=== PATIENT | female | born 1945 | race Caucasian/White ===

== ENCOUNTER 2017-06-08 03:48 | Emergency (ER) | payer MEDICARE, OTHER ==
[2017-06-08 04:09] LABS: BASOPHILS 0.4 % (0-2); EOSINOPHILS 2.2 % (0-7); HEMATOCRIT 39.7 % (36.0-48.0); HEMOGLOBIN 13.4 g/dL (12-16); IMMATURE GRANULOCYTES 0.2 % (0-5); LYMPHOCYTES 36.5 % (15-50); MCH 28.7 pg (26.0-34.0); MCHC 33.8 g/dL (31.0-37.0); MEAN PLATELET VOLUME 9.4 fL (7.4-10.4); MONOCYTES 8.1 % (2-11); NEUTROPHILS 52.6 % (40-80); PLATELET COUNT 191 10x3/uL (130-400); RBC 4.67 10x6/uL (4.00-5.40); RDW 13.2 % (11.5-14.5)
[2017-06-08 04:21] LABS: INR 1.06 (0.85-1.17); PROTIME 13.4 SECONDS (11.6-15.0)
[2017-06-08 04:22] LABS: APTT 32.6 SECONDS (22.8-39.4)
[2017-06-08 04:26] LABS: ALKALINE PHOSPHATASE 118 U/L (46-116); ALT (SGPT) 20 U/L (10-68); BILIRUBIN - TOTAL 0.43 mg/dL (0.2-1.3); CALC OSMOLALITY 282 mosm/kg (275-300); CALCIUM 9.2 mg/dL (8.5-10.1); CARBON DIOXIDE 28.6 mmol/L (21.0-32.0); CHLORIDE - SERUM 106 mmol/L (98-107); CREATININE - SERUM 0.9 mg/dL (0.6-1.3); GLUCOSE 110 mg/dL (74-106); PROTEIN - SERUM 7.2 g/dL (6.4-8.2); SODIUM 141 mmol/L (136-145); UREA NITROGEN 16 mg/dL (7-18); eGFR NON AFRICAN AMERICAN 65 mL/min (90-120)
[2017-06-08 04:37] LABS: CHOL - HDL RATIO 3.2 ratio (2.3-4.1); CHOLESTEROL, TOTAL 153 mg/dL (0-200); CKMB 0.7 U/L (0.0-3.6); CREATINE KINASE 35 UL (21-215); HDL CHOLESTEROL 48 mg/dL (32-96); LDL CHOLESTEROL 86 mg/dL (0-100); LDL-HDL RATIO 1.8 ratio (1.5-3.5); TRIGLYCERIDE 98 mg/dL (30-200)
[2017-06-08 04:41] LABS: TROPONIN-I < 0.017 ng/mL (0.000-0.060)
== END 2017-06-08 05:42 | disposition home or self-care (01) ==
LOC: D.ER 03:48
PROVIDERS: Emergency Medicine
DX: R07.9 Chest pain, unspecified (principal); I25.10 Atherosclerotic heart disease of native coronary artery without angina pectoris; R09.1 Pleurisy

== ENCOUNTER → 2017-06-10 14:39 | Outpatient (CLI) | payer MEDICARE, OTHER | END | disposition home or self-care (01) | LOC: D.CT 14:39 | DX: R06.02 Shortness of breath (principal) ==

== ENCOUNTER 2020-05-10 11:53 | Day surgery (SDC) | payer MEDICARE, OTHER ==
[~2020-05-10] VITALS: Ht 170.2 cm; Wt 78.0 kg
[2020-05-10 12:25] LABS: BASOPHILS 0.2 % (0-2); EOSINOPHILS 0.8 % (0-7); HEMATOCRIT 44.1 % (36.0-48.0); HEMOGLOBIN 15.3 g/dL (12-16); LYMPHOCYTES 22.9 % (15-50); MCH 30.6 pg (26.0-34.0); MCHC 34.7 g/dL (31.0-37.0); MCV 88.2 fL (80.0-100.0); MEAN PLATELET VOLUME 8.9 fL (7.4-10.4); MONOCYTES 10.8 % (2-11); NEUTROPHIL ABS# 3.13 10x3/uL (1.56-6.13); NEUTROPHILS 65.3 % (40-80); RDW 12.6 % (11.5-14.5); WBC 4.8 10x3/uL (4.8-10.8)
[2020-05-10 12:33] LABS: INR 1.15 (0.85-1.17); PROTIME 13.6 SECONDS (11.6-15.0)
[2020-05-10 12:37] LABS: PLATELET COUNT 243 10x3/uL (130-400)
[2020-05-10 12:58] LABS: ALBUMIN 4.6 g/dL (3.4-5.0); ANION GAP 14.4 mmol/L (8-16); BILIRUBIN - TOTAL 0.99 mg/dL (0.2-1.3); CALCIUM 9.9 mg/dL (8.5-10.1); CARBON DIOXIDE 27.1 mmol/L (21.0-32.0); CREATININE - SERUM 1.1 mg/dL (0.6-1.3); POTASSIUM - SERUM 4.5 mmol/L (3.5-5.1); PROTEIN - SERUM 7.6 g/dL (6.4-8.2)
[2020-05-10 13:51] VITALS: BP 157/64; Ht 170.2 cm; Wt 78.0 kg
--- NOTE | 2020-05-10 15:30 | NUR ---
DISCHARGE INSTRUCTIONS REVIEWED WITH PATIENT AND COPY PROVIDED. PT VOICED UNDERSTANDING. IV DC'D WITH CATH TIP INTACT AND PT GETTING DRESSED FOR DISCHARGE.
--- NOTE | 2020-05-10 15:39 | NUR ---
DISCHARGED VIA W/C, ACCOMPANIED BY [facility], TO [facility] WITH SPOUSE DRIVING. ALL BELONGINGS WITH PT. NO C/O VOICED.
--- NOTE | 2020-05-11 14:44 | OP ---
PATIENT NAME: REGGIE IBARRA MEDICAL RECORD: [id number] :43 LOCATION:[facility] ADMISSION DATE: SURGEON: ANDRE MAYER MD DATE OF OPERATION: 05/10/2020 PROCEDURE: Colonoscopy. PREOPERATIVE DIAGNOSIS: History of polyps. MEDICATION: Propofol per anesthesia. DESCRIPTION OF PROCEDURE: Colonoscopy was performed. The colonoscope was inserted through the rectum and advanced to the cecum, identified by the ileocecal valve and the appendiceal orifice. The quality of the prep was good. There were a few sigmoid diverticula visualized. The remainder of the exam was normal. The patient tolerated the procedure well. FINAL DIAGNOSIS: Few sigmoid diverticula. PLAN: Advance diet. Recommend repeat colonoscopy in 3-5 years given history of polyps. TRANSINT:[id number] Voice Confirmation ID: [id number] DOCUMENT ID: [id number] ANDRE MAYER MD at 1444 CC: [id number] DICTATION DATE: 05/10/20 1506 TRAINING AND DEVELOPMENT PROJECT LEADER: 05/10/20 2358 [facility] 05/10/20 [id number] [place] [address]
== END 2020-05-10 15:39 | disposition home or self-care (01) ==
LOC: D.OPS 11:53
PROVIDERS: Anesthesiology; ATTEND Internal Medicine Gastroenterology
DX: Z86.010 Personal history of colon polyps (principal); Z12.11 Encounter for screening for malignant neoplasm of colon; K57.30 Diverticulosis of large intestine without perforation or abscess without bleeding